=== PATIENT | female | born 1980 | race Caucasian/White ===

== ENCOUNTER 2018-02-03 07:48 | Day surgery (SDC) | payer BC ==
[~2018-02-03 07:48] MED LIST: ASPI325 PO; Colace100 MG PO; DESV50; DESV50 PO; HYDMOR2 PO; HYDR1TAB94; IBUP200 PO; LAMO100; LAMO25 PO; PANT20 PO; VALA500 PO
--- NOTE | 2018-02-03 08:21 | NUR ---
History, Chart, Medications and Allergies reviewed before start of procedure. Lungs clear T/O to Auscultation. Patient confirms NPO status and agrees with scheduled surgery. Patient reports completing Chlorhexadine shower X2 prior to admission to hospital. Patient States Post-Procedure ride home has been arranged.
[2018-02-03] MEDS ORDERED: ALPR1 PO (08:34)
[2018-02-03] MEDS ORDERED: FURO20 PO (08:34)
--- NOTE | 2018-02-03 13:07 | NUR ---
Patient up to Ambulate independently. Gait steady. Discharge instructions reviewed with patient. Patient verbalizes understanding. Copy given to patient to take home. Dressing to procedure site clean, dry, intact with no visible drainage, swelling, erythema or bruising noted. Patient States Post-Procedure ride home has been arranged. Discharged via wheelchair to private car for ride home.
== END 2018-02-03 22:42 | disposition home or self-care (01) ==
LOC: ORSCMMR 07:48 → ORD 11:00 → ORSCMMR 11:00
PROVIDERS: Obstetrics & Gynecology
PROC: 0UT74ZZ Resection of Bilateral Fallopian Tubes, Percutaneous Endoscopic Approach (ICD-10-PCS; principal; 2018-02-03 09:15)
PROC: 0U5B8ZZ Destruction of Endometrium, Via Natural or Artificial Opening Endoscopic (ICD-10-PCS; principal; 2018-02-03 09:15)
DX: N92.1 Excessive and frequent menstruation with irregular cycle (principal); N94.6 Dysmenorrhea, unspecified; Z30.2 Encounter for sterilization; E66.01 Morbid (severe) obesity due to excess calories; Z68.43 Body mass index [BMI] 50.0-59.9, adult; Z79.899 Other long term (current) drug therapy
CPT/HCPCS: 88302; 88305; J0690; J1100; J1885; J2250; J2405; J3010; J7120

== ENCOUNTER → 2020-12-05 | Outpatient (CLI) | payer BC ==
[~2020-12-05] MED LIST changes: +ALPR1 PO; +FURO20 PO
== END ==
LOC: LAB SHORT 10:43
DX: L08.9 Local infection of the skin and subcutaneous tissue, unspecified (principal)
CPT/HCPCS: 87070; 87205

== ENCOUNTER → 2022-06-08 | Outpatient (CLI) | payer BC | END | disposition home or self-care (01) | LOC: LAB 14:15 → LAB SHORT 14:15 | DX: R30.0 Dysuria (principal) | CPT/HCPCS: 87086 ==